=== PATIENT | female | born 1990 | race Caucasian/White ===

== ENCOUNTER 2017-09-15 12:40 | Emergency (ER) | payer OTHER ==
[~2017-09-15] VITALS: Ht 160 cm; Wt 61.2 kg
[2017-09-15 12:45] VITALS: BP 106/72
[2017-09-15] MEDS ORDERED: IBUPROFEN 600 MG TABLET PO ONE ×2 (13:21→13:30)
--- NOTE | 2017-09-15 13:22 | NUR ---
CALLED [facility], TO REPORT INCIDENT. I WAS TOLD BY [employer] [id number] THAT PATIENT NEEDS TO FOLLOW UP WITH [place] [employer], SINCE INCIDENT TOOK PLACE IN [place].
== END 2017-09-15 13:28 | disposition home or self-care (01) ==
LOC: ER 12:42
DX: S06.0X0A Concussion without loss of consciousness, initial encounter (principal); S16.1XXA Strain of muscle, fascia and tendon at neck level, initial encounter; Z88.8 Allergy status to other drugs, medicaments and biological substances; V43.52XA Car driver injured in collision with other type car in traffic accident, initial encounter; Y93.89 Activity, other specified; Y92.410 Unspecified street and highway as the place of occurrence of the external cause; Y99.8 Other external cause status
CPT/HCPCS: 99282; A4606; Z7610

== ENCOUNTER 2017-09-26 12:20 | Emergency (ER) | payer OTHER ==
[~2017-09-26] VITALS: Ht 160 cm; Wt 66.2 kg
[2017-09-26 12:56] VITALS: BP 113/79
== END 2017-09-26 13:20 | disposition home or self-care (01) ==
LOC: ER 12:22
DX: G44.209 Tension-type headache, unspecified, not intractable (principal)
CPT/HCPCS: 99281; A4606; Z7610; Z7502